=== PATIENT | male | born 1985 | race American Indian/Alaskan Native ===

== ENCOUNTER 2018-01-14 12:57 | Outpatient (CLI) | payer MEDICARE ==
--- NOTE | 2018-01-14 15:50 | Cat Scan Report ---
FINAL REPORT EXAM: CT LUMBAR SPINE WO CON HISTORY: LOW BACK PAIN TECHNIQUE: Spiral high-resolution unenhanced 2.5 millimeter axial images were obtained through the lumbar spine. Sagittal and coronal plane are reconstructions were performed. PRIORS: None. FINDINGS: Counting reference: Lumbosacral junction. For the purposes of this report, L4-L5 is considered the level of the iliac crest. Bone marrow/ Fracture: There are superior endplate compressions involving T12 (20%) and L1 (33 %). Age of these findings is indeterminate without prior studies but CT features suggest a nonacute process. The L1 abnormality could be associated with a Schmorl's node. There is osteophytic bridging along the right lateral aspect of the T12-L1 level. No evidence of a lytic or blastic process in the visualized spine. Alignment: Retrolisthesis of L5 on S1. Otherwise alignment is normal. T12-L1: Canal and foramina are patent. L1-L2: Canal and foramina are patent. L2-L3: Canal and foramina are patent. L3-L4: Canal and foramina are patent. L4-L5: Canal and foramina are patent. L5-S1: There is a moderate central and left-sided disc bulge causing mild effacement of the left side of the thecal sac. Moderate disc space narrowing is present with a grade 1 minimal retrolisthesis of L5 on S1. This causes moderate neural foraminal narrowing bilaterally at this level. Paraspinal soft tissues: The paraspinal soft tissues show no evidence for paravertebral hematoma or soft tissue mass. Sacrum and iliac wings: Visualized portions of the sacrum and iliac wings appear intact without fracture. The presacral soft tissues are normal in appearance. IMPRESSION: 1. Disc bulge and in the central and left side of L5-S1 associated with moderate disc narrowing. Effacement of the left side of the thecal sac at this level is noted 2. There is a grade 1 retrolisthesis of L5 on S1 which is associated with bilateral neural foraminal narrowing 3. Superior endplate compression deformities of T12 and L1. CT features suggest a nonacute process although actual age is indeterminate without the benefit of any prior examination. The L1 deformity is likely associated with a Schmorl's node.
== END 2018-01-14 12:58 | disposition home or self-care (01) ==
LOC: CT 12:57
PROVIDERS: ATTEND Internal Medicine
DX: M51.27 Other intervertebral disc displacement, lumbosacral region (principal)
CPT/HCPCS: 72131

== ENCOUNTER 2018-02-02 20:01 | Emergency (ER) | payer MEDICARE ==
[2018-02-02] MEDS ORDERED: ZOFRAN ONE (20:30)
[2018-02-02] MEDS ORDERED: ASPIRIN PO ONE (20:48)
[2018-02-02] MEDS ORDERED: ZOFRAN IV ONE (20:48)
[2018-02-02 21:00] LABS: Basophils # (Auto) 0.1 K/mm3 (0.0-0.1); Basophils % (Auto) 0.9 % (0.0-1.8); Eosinophils % (Auto) 0.4 % (0.0-4.3); Hematocrit 49.5 % (35.5-45.6); Hemoglobin 17.1 gm/dl (11.8-15.2); Lymphocytes # (Auto) 2.2 K/mm3 (1.2-5.4); Lymphocytes % (Auto) 16.8 % (13.4-35.0); Mean Corpuscular HGB Conc 35 % (32-34); Mean Corpuscular Hemoglobin 32 pg (28-32); Mean Corpuscular Volume 91 fl (84-94); Monocytes % (Auto) 7.6 % (0.0-7.3); Platelet Count 316 K/mm3 (140-440); Red Blood Count 5.41 M/mm3 (3.65-5.03); Red Cell Distribution Width 15.2 % (13.2-15.2)
[2018-02-02] MEDS ORDERED: MORPHINE IV ONE (21:19)
[2018-02-02] MEDS ORDERED: TYLENOL PO ONE (21:23)
--- NOTE | 2018-02-02 21:23 | Emergency Department Report ---
ED General Adult HPI - General Chief complaint: Chest Pain Stated complaint: CHEST PAIN,WEAK,NUMBNESS Time Seen by Provider: 02/02/18 21:06 Source: patient Mode of arrival: Ambulatory Limitations: No Limitations - History of Present Illness Initial comments: Patient is 33 years old male with history of hypertension and bipolar disorder. Patient presented to the ER complaining of 3 day history of neck pain that radiated down to his arms on both sides associated with nausea and vomiting. Patient stated that his symptoms started immediately after he cracked his neck. Patient denied any weakness. Patient is also complaining off cough and chest pain. Describes his pain as sharp and does not radiate. - Related Data Home Medications Medication Instructions Recorded Confirmed Last Taken DULoxetine 60 mg PO DAILY 02/02/18 02/02/18 Unknown Lisinopril 20 mg PO DAILY 02/02/18 02/02/18 Unknown Ziprasidone [Geodon] 1 cap PO BID 02/02/18 02/02/18 Unknown Previous Rx's Medication Instructions Recorded Last Taken Type Azithromycin [Zithromax Z-ADDY] 250 mg PO DAILY 1 Days tab 02/02/18 Unknown Rx DULoxetine [Cymbalta] 60 mg PO QDAY #7 capsule 02/02/18 Unknown Rx Lisinopril 20 mg PO DAILY #30 tablet 02/02/18 Unknown Rx Ondansetron [Zofran Odt] 4 mg PO Q8HR PRN #14 tab.rapdis 02/02/18 Unknown Rx Ziprasidone [Geodon] 20 mg PO BID #14 capsule 02/02/18 Unknown Rx traMADol [Ultram] 50 mg PO Q6HR PRN #14 tablet 02/02/18 Unknown Rx Allergies Allergy/AdvReac Type Severity Reaction Status Date / Time Penicillins Allergy Hives Verified 02/02/18 20:46 Sulfa (Sulfonamide Allergy Hives Verified 02/02/18 20:46 Antibiotics) ED Review of Systems ROS: Stated complaint: CHEST PAIN,WEAK,NUMBNESS Other details as noted in HPI Comment: All other systems reviewed and negative Constitutional: fever. denies: chills Respiratory: cough. denies: orthopnea, shortness of breath, SOB with exertion, SOB at rest Cardiovascular: chest pain. denies: palpitations, dyspnea on exertion, orthopnea Gastrointestinal: nausea, vomiting. denies: abdominal pain Musculoskeletal: denies: back pain Skin: denies: rash Neurological: numbness. denies: headache, weakness, paresthesias, confusion, abnormal gait ED Past Medical Hx - Past Medical History Hx Hypertension: Yes Hx Psychiatric Treatment: Yes (Bipolar, Depression) Hx COPD: Yes Additional medical history: Spontaneous Pneumothorax - Surgical History Additional Surgical History: Tonsillectomy, Adenoidectomy - Social History Smoking Status: Never Smoker Substance Use Type: Marijuana - Medications Home Medications: Home Medications Medication Instructions Recorded Confirmed Last Taken Type Azithromycin [Zithromax Z-ADDY] 250 mg PO DAILY 1 Days tab 02/02/18 Unknown Rx DULoxetine 60 mg PO DAILY 02/02/18 02/02/18 Unknown History DULoxetine [Cymbalta] 60 mg PO QDAY #7 capsule 02/02/18 Unknown Rx Lisinopril 20 mg PO DAILY 02/02/18 02/02/18 Unknown History Lisinopril 20 mg PO DAILY #30 tablet 02/02/18 Unknown Rx Ondansetron [Zofran Odt] 4 mg PO Q8HR PRN #14 tab.rapdis 02/02/18 Unknown Rx Ziprasidone [Geodon] 1 cap PO BID 02/02/18 02/02/18 Unknown History Ziprasidone [Geodon] 20 mg PO BID #14 capsule 02/02/18 Unknown Rx traMADol [Ultram] 50 mg PO Q6HR PRN #14 tablet 02/02/18 Unknown Rx ED Physical Exam - General Limitations: No Limitations General appearance: alert, in no apparent distress - Head Head exam: Present: atraumatic, normocephalic, normal inspection - Eye Eye exam: Present: normal appearance, PERRL - ENT ENT exam: Present: normal exam, normal orophraynx, mucous membranes moist, normal external ear exam - Neck Neck exam: Present: normal inspection. Absent: tenderness, meningismus, full ROM (decreased range of motion), lymphadenopathy, thyromegaly - Respiratory Respiratory exam: Present: normal lung sounds bilaterally. Absent: respiratory distress, wheezes, rales, rhonchi, chest wall tenderness, accessory muscle use, decreased breath sounds, prolonged expiratory - Cardiovascular Cardiovascular Exam: Present: regular rate, normal rhythm, normal heart sounds - GI/Abdominal GI/Abdominal exam: Present: soft, normal bowel sounds. Absent: distended, tenderness, guarding, rebound, rigid, organomegaly, mass, bruit, pulsatile mass , hernia - Extremities Exam Extremities exam: Present: normal inspection, full ROM, normal capillary refill - Back Exam Back exam: Present: normal inspection, full ROM. Absent: tenderness, CVA tenderness (R), CVA tenderness (L), muscle spasm, paraspinal tenderness, vertebral tenderness - Neurological Exam Neurological exam: Present: alert, oriented X3, CN II-XII intact, normal gait, reflexes normal - Skin Skin exam: Present: warm, intact, normal color ED Course Vital Signs 02/02/18 02/02/18 20:05 20:24 Temperature 100.2 F H 100.2 F H Pulse Rate 122 H 121 H Respiratory 24 18 Rate Blood Pressure 147/83 147/83 O2 Sat by Pulse 98 98 Oximetry ED Medical Decision Making - Lab Data Result diagrams: 02/02/18 20:53 02/02/18 20:53 - EKG Data -: EKG Interpreted by Ms EKG shows normal: sinus rhythm Rate: normal - EKG Data Interpretation: no acute changes - Radiology Data Radiology results: report reviewed Referring Physician: AYE GUARDADO Patient Name: SANDHYA MCCORMACK Date of : 1985 Sex: Male Report Date: 2018-02-02 Report Status: Final[place] [address] XRay Report Signed Patient: SANDHYA MCCORMACK MR#: [id number] : 1985 Acct:[id number] Age/Sex: 33 / M ADM Date: 02/02/18 Loc: ED Attending Dr: Ordering Physician: AYE GUARDADO Date of Service: 02/02/18 Procedure(s): XR chest 1V ap Accession Number(s): [id number] cc: AYE GUARDADO Fluoro Time In Minutes: FINAL REPORT EXAM: XR CHEST 1V AP HISTORY: chest pain TECHNIQUE: Single, portable chest x-ray. PRIORS: None. FINDINGS: Cardiac and mediastinal silhouette within normal limits. Lungs are normally expanded. No significant vascular congestion. No focal consolidation or apparent pneumothorax. Bony thorax grossly unremarkable. Mild levoconvex curvature of thoracic spine. IMPRESSION: 1. No acute findings. Transcribed By: [facility] Dictated By: RONNELL CARD MD Electronically Authenticated By: RONNELL CARD MD Signed Date/Time: 02/02/182199 DD/ 99 TD/TT: 02/02/182199 Referring Physician: AYE GUARDADO Patient Name: SANDHYA MCCORMACK Date of : 1985 Sex: Male Report Date: 2018-02-02 Report Status: Finalized Findings [facility] [address] [place] [address] Cat Scan Report Signed Patient: SANDHYA MCCORMACK MR#: [id number] : 1985 Acct:[id number] Age/Sex: 33 / M ADM Date: 02/02/18 Loc: ED Attending Dr: Ordering Physician: AYE GUARDADO Date of Service: 02/02/18 Procedure(s): CT cervical spine wo con Accession Number(s): [id number] cc: AYE GUARDADO FINAL REPORT EXAM: CT CERVICAL SPINE WO CON HISTORY: NECK INJURY TECHNIQUE: Spiral CT scanning of the cervical spine, with axial images and multiplanar reformations. PRIORS: None. FINDINGS: Mild dextroconvex curvature may be positional versus soft tissue spasm. Very mild degenerative spondylosis in the C5-6 level. No acute compression deformity or gross malalignment of cervical vertebral bodies. No acute fracture identified. No acute, osseous central spinal canal encroachment. Paraspinal soft tissues grossly unremarkable. Emphysematous change and possible pleuro-parenchymal scarring in the visualized upper lungs. IMPRESSION: 1. No acute compression deformity or apparent fracture in the cervical spine. Transcribed By: [facility] Dictated By: RONNELL CARD MD Electronically Authenticated By: RONNELL CARD MD Signed Date/Time: 02/02/182204 DD/ 04 TD/TT: 02/02/182204 - Medical Decision Making Patient stated that he is feeling much better. He asked if he can give him a refill for his psychiatric medicine since he lost his prescription. I agreed to give him a seven-day supply and advised him to follow up with his psychiatric doctor for further management. Critical care attestation.: If time is entered above; I have spent that time in minutes in the direct care of this critically ill patient, excluding procedure time. ED Disposition Clinical Impression: Acute neck pain, Chest pain, Acute bronchitis Disposition: TO HOME OR SELFCARE Is pt being admited?: No Condition: Stable Instructions: Chest Pain (ED), Acute Bronchitis (ED), Cervical Sprain (ED), Cervical Radiculopathy (ED) Prescriptions: Azithromycin [Zithromax Z-ADDY] 250 mg PO DAILY 1 Days tab DULoxetine [Cymbalta] 60 mg PO QDAY #7 capsule Lisinopril 20 mg PO DAILY #30 tablet Ondansetron [Zofran Odt] 4 mg PO Q8HR PRN #14 tab.rapdis PRN Reason: Nausea And Vomiting traMADol [Ultram] 50 mg PO Q6HR PRN #14 tablet PRN Reason: Pain Ziprasidone [Geodon] 20 mg PO BID #14 capsule Referrals: PRIMARY CARE,MD [Primary Care Provider] - 3-5 Days
[2018-02-02 21:33] LABS: BUN/Creatinine Ratio 13; Blood Urea Nitrogen 9 mg/dL (9-20); Calcium 9.5 mg/dL (8.4-10.2); Hemolysis Index 16
--- NOTE | 2018-02-02 22:01 | XRay Report ---
FINAL REPORT EXAM: XR CHEST 1V AP HISTORY: chest pain TECHNIQUE: Single, portable chest x-ray. PRIORS: None. FINDINGS: Cardiac and mediastinal silhouette within normal limits. Lungs are normally expanded. No significant vascular congestion. No focal consolidation or apparent pneumothorax. Bony thorax grossly unremarkable. Mild levoconvex curvature of thoracic spine. IMPRESSION: 1. No acute findings.
--- NOTE | 2018-02-02 22:06 | Cat Scan Report ---
FINAL REPORT EXAM: CT CERVICAL SPINE WO CON HISTORY: NECK INJURY TECHNIQUE: Spiral CT scanning of the cervical spine, with axial images and multiplanar reformations. PRIORS: None. FINDINGS: Mild dextroconvex curvature may be positional versus soft tissue spasm. Very mild degenerative spondylosis in the C5-6 level. No acute compression deformity or gross malalignment of cervical vertebral bodies. No acute fracture identified. No acute, osseous central spinal canal encroachment. Paraspinal soft tissues grossly unremarkable. Emphysematous change and possible pleuro-parenchymal scarring in the visualized upper lungs. IMPRESSION: 1. No acute compression deformity or apparent fracture in the cervical spine.
[2018-02-02 23:39] LABS: Bilirubin,Urine NEG (Negative); Blood,Urine NEG (Negative); Color,Urine Yellow (Yellow); Mucus,Urine 2+ /HPF; Protein,Urine <15 mg/dL mg/dL (Negative); Urobilinogen,Urine < 2.0 mg/dL (<2.0)
[2018-02-03 00:29] VITALS: BP 138/85
[2018-02-03 01:20] LABS: Cannabinoid Screen,Urine PRESUMPTIVE POSITIVE
[2018-02-03 01:33] LABS: Amphetamine Screen,Urine PRESUMPTIVE NEGATIVE; Benzodiazepines Screen,Urine PRESUMPTIVE NEGATIVE; Cocaine Screen,Urine PRESUMPTIVE NEGATIVE; Methadone Screen,Urine PRESUMPTIVE NEGATIVE; Opiate Screen,Urine PRESUMPTIVE NEGATIVE
== END 2018-02-03 00:30 | disposition home or self-care (01) ==
LOC: ED 20:01
DX: M54.2 Cervicalgia (principal); J20.9 Acute bronchitis, unspecified; R07.89 Other chest pain; I10 Essential (primary) hypertension; F31.9 Bipolar disorder, unspecified; R05 Cough; J44.9 Chronic obstructive pulmonary disease, unspecified; Z90.89 Acquired absence of other organs; Z88.0 Allergy status to penicillin; Z88.2 Allergy status to sulfonamides
CPT/HCPCS: 36415; 71045; 72125; 80048; 80307; 81001; 84484; 85025; 93005; 93010; 96374; 96375; 99285; J2270; J2405